=== PATIENT | male | born 1955 | race American Indian/Alaskan Native ===

== ENCOUNTER 2017-10-29 07:10 | Day surgery (SDC) | payer OTHER ==
[2017-10-29] MEDS ORDERED: ECOTRIN PO ONE (07:21)
[2017-10-29 07:58] LABS: Basophils # (Auto) 0.1 K/mm3 (0.0-0.1); Basophils % (Auto) 0.7 % (0.0-1.8); Eosinophils # (Auto) 0.1 K/mm3 (0.0-0.4); Eosinophils % (Auto) 1.2 % (0.0-4.3); Hematocrit 42.2 % (35.5-45.6); Hemoglobin 14.1 gm/dl (11.8-15.2); Lymphocytes # (Auto) 2.3 K/mm3 (1.2-5.4); Lymphocytes % (Auto) 33.7 % (13.4-35.0); Mean Corpuscular HGB Conc 34 % (32-34); Mean Corpuscular Hemoglobin 32 pg (28-32); Mean Corpuscular Volume 95 fl (84-94); Monocytes # (Auto) 0.7 K/mm3 (0.0-0.8); Monocytes % (Auto) 9.8 % (0.0-7.3); Platelet Count 267 K/mm3 (140-440); Red Blood Count 4.47 M/mm3 (3.65-5.03)
[2017-10-29] MEDS ORDERED: NACL 0.9% 500 ML 500 ML IV SCH (08:00)
[2017-10-29 08:02] LABS: INR 0.87 (0.87-1.13)
[2017-10-29 08:04] LABS: BUN/Creatinine Ratio 16; Blood Urea Nitrogen 11 mg/dL (9-20); Calcium 9.5 mg/dL (8.4-10.2); Hemolysis Index 77
[2017-10-29] MEDS ORDERED: CALAN ONE (10:52)
[2017-10-29] MEDS ORDERED: HEPARIN/NS 5000 UNIT/500ML(CATH LAB) 1,000 ML IR ONE (10:52)
[2017-10-29] MEDS ORDERED: NITROGLYCERIN SYRINGE 0 ML ONE (10:52)
[2017-10-29] MEDS ORDERED: HEPARIN 10,000 UNITS/10 ML ONE (10:52)
[2017-10-29] MEDS ORDERED: XYLOCAINE 2% INFILTRATI ONE (10:52)
[2017-10-29] MEDS ORDERED: SUBLIMAZE ONE (10:53)
[2017-10-29] MEDS ORDERED: VERSED ONE (10:53)
--- NOTE | 2017-10-29 11:59 | Short Stay Summary ---
Short Stay Documentation Date of service: 10/29/17 - History H&P: obtained from office - Allergies and Medications Current Medications: Allergies codeine Adverse Reaction (Unverified 10/29/17 07:10) Nausea Home Medications Medication Instructions Recorded Confirmed Last Taken Type Aspirin [Adult Low Dose Aspirin EC] 81 mg PO QDAY 10/29/17 10/29/17 10/27/17 History AtorvaSTATin [Lipitor] 20 mg PO QHS 10/29/17 10/29/17 10/27/17 History Citalopram [celeXA] 10 mg PO QDAY 10/29/17 10/29/17 10/27/17 History Famotidine [Pepcid] 20 mg PO QDAY 10/29/17 10/29/17 10/27/17 History Losartan Potassium [Cozaar] 50 mg PO QDAY 10/29/17 10/29/17 10/27/17 History Multivitamin [Multiple Vitamins] 1 each PO QDAY 10/29/17 10/29/17 10/27/17 History glipiZIDE [Glipizide] 5 mg PO QDAY 10/29/17 10/29/17 10/27/17 History metFORMIN XR [Glucophage XR] 500 mg PO QDAY 10/29/17 10/29/17 10/27/17 History Active Medications Sodium Chloride (Nacl 0.9% 500 Ml) 500 mls @ 50 mls/hr IV DIRECT SRINI Stop: 10/29/17 17:59 Last Admin: 10/29/17 07:47 Dose: 50 mls/hr - Brief post op/procedure progress note Date of procedure: 10/29/17 Pre-op diagnosis: recurrent chest pain Post-op diagnosis: same Procedure: [facility] - see dictated cath report Anesthesia: local Estimated blood loss: none Condition: stable - Disposition Condition at discharge: Stable Disposition: [id number] TO HOME OR SELFCARE - Discharge Diagnoses (1) Abnormal stress test Status: Chronic (2) Normal coronary arteries Status: Chronic Short Stay Discharge Plan Activity: advance as tolerated Diet: regular Wound: open to air, keep clean and dry, per your surgeon's advice Follow up with: CRISTAL SERRATO MD [Primary Care Provider] - 7 Days
--- NOTE | 2017-10-29 12:37 | Cardiac Catherization Report ---
The patient is a 62-year-old gentleman with history of chest pains and hypertension, was admitted to [facility] a few weeks ago and workup including stress thallium was unremarkable, was having persistent chest pain, hence scheduled for cardiac catheterization for definitive diagnosis and treatment. The patient has underlying risk factors of diabetes mellitus, hyperlipidemia, hypertension, and chronic smoking. The patient is aware of the procedure, potential complications and alternatives of therapy available. DESCRIPTION OF PROCEDURE: The patient was brought to the catheterization laboratory in fasting condition. The right wrist area and forearm thoroughly cleansed with Betadine solution. Sterile drapes were applied. Local anesthesia was achieved using 2% Xylocaine. Right radial artery puncture was made using 21-gauge arterial puncture needle. A 5-[place] slender sheath was introduced. The patient received 3000 units of intravenous heparin and 5 mg of intra-arterial verapamil. Subsequently, using multipurpose catheter, left coronary angiograms were obtained in multiple views. Because of the tortuosity of the subclavian and innominate artery, multipurpose catheters has to be exchanged with a 6-[place] JR4 catheter to obtain angiograms of the right coronary artery and left ventriculogram done in CASTRO projection using hand injection. At the end of the procedure, catheter and sheath were removed. The patient was sedated with IV Versed and fentanyl after evaluating for moderate sedation. It was felt he is an appropriate candidate. Sedation was started at 11:01 a.m. and ended at 11:18 a.m. No untoward complications were noted. The patient was monitored throughout the procedure. The patient is alert, oriented x 3 and a pulse oximetry was unremarkable. Following findings were noted. HEMODYNAMICS: 1. Opening aortic pressure 118/71. Left ventricular pressure 127/25. No gradient across the aortic valve were noted. Estimated ejection fraction of 55%. 2. Left angiogram done in CASTRO projection shows normal sized left ventricle with normal contractility. End-diastolic and systolic volumes are normal. Mitral regurgitation could not be evaluated. 3. Left coronary artery arises normally from left coronary cusp. Left main, LAD and its branches, circumflex artery and its branch are angiographically smooth and normal. Mildly tortuous vessels noted. Similarly, right coronary artery dominant vessel arises normally from right coronary cusp. This is tortuous vessel, dominant vessel, but angiographically smooth and normal. FINAL IMPRESSION: 1. Normal-sized left ventricle with normal contractility with elevated end diastolic pressure 25 mmHg. Ejection fraction approximately 55%. 2. Essentially normal coronary anatomy angiographically. Right coronary artery being dominant vessel. 3. Right radial artery was used for access and radial band was applied for good hemostasis. 4. The patient was sedated with IV Versed and fentanyl. No untoward complications were noted. The patient was transferred to the recovery area in a stable condition. The patient will be continued on risk factor modification. At this time, etiology of his chest pain is not clear. The findings were explained to the patient. JOB# [id number] DAVE/DEAN
[2017-10-29 14:08] VITALS: BP 124/71
== END 2017-10-29 14:00 | disposition home or self-care (01) ==
LOC: CATHLABREC 07:10
PROVIDERS: ATTEND Internal Medicine
DX: R07.9 Chest pain, unspecified (principal); I10 Essential (primary) hypertension; E11.9 Type 2 diabetes mellitus without complications; E78.5 Hyperlipidemia, unspecified; E66.9 Obesity, unspecified; Z79.84 Long term (current) use of oral hypoglycemic drugs; Z88.5 Allergy status to narcotic agent; Z79.82 Long term (current) use of aspirin; Z79.899 Other long term (current) drug therapy; Z68.31 Body mass index [BMI] 31.0-31.9, adult
CPT/HCPCS: 36415; 80048; 85025; 85610; 85730; 93005; 93010; 93458; C1894; J1644; J2250; J3010; J7040; Q9967